=== PATIENT | male | born 1945 | race Caucasian/White ===

== ENCOUNTER 2023-01-13 04:58 | Observation (INO) ==
[2023-01-13] MEDS ORDERED: IOPAMIDOL 100 ML BOTTLE IV ONE (04:59)
[2023-01-13] MEDS ORDERED: 0.9 % SODIUM CHLORIDE 1,000 ML IV ONE (05:15)
[2023-01-13] MEDS ORDERED: fentaNYL 100 MCG/2 ML VIAL IV ONE ×3 (05:15→12:33)
[2023-01-13] MEDS ORDERED: ONDANSETRON 4 MG/2 ML VIAL IV ONE (05:15)
[2023-01-13 05:18] LABS: POC Calcium, Ionized 1.12 (1.16-1.32); POC Creatinine 0.9 (0.6-1.2); POC Potassium 3.7 (3.3-5.1)
[2023-01-13 06:20] LABS: Basophils # (Auto) 0.03 K/mcL (0.00-0.30); Basophils % (Auto) 0.2 % (0.0-2.0); Eosinophils # (Auto) 0.01 K/mcL (0.00-0.70); Eosinophils % (Auto) 0.1 % (0.0-7.0); Hematocrit 49.8 % (40.1-51.0); Hemoglobin 16.3 g/dL (13.7-17.5); Lymphocytes # (Auto) 1.52 K/mcL (1.50-4.80); Lymphocytes % (Auto) 9.6 % (15.5-49.0); Mean Cell Volume 84.8 fL (80.0-100.0); Mean Corpuscular HGB Conc 32.7 g/dL (31.0-36.0); Mean Platelet Volume 11.1 fL (8.8-12.5); Monocytes # (Auto) 2.31 K/mcL (0.10-0.90); Monocytes % (Auto) 14.6 % (1.0-12.0); Neutrophils % (Auto) 75.1 % (38.0-78.0); Platelet Count 313 K/mcL (140-440); RBC 5.87 M/mcL (4.63-6.08); WBC 15.8 K/mcL (4.5-11.0)
[2023-01-13] MEDS ORDERED: PIPERACILLIN SODIUM/TAZOBACTAM 4.5 GM in DEXTROSE 5% IN WATER 50 ML IV ONE (06:25)
[2023-01-13] MEDS ORDERED: LACTATED RINGERS 1,000 ML IV ONE (06:54)
[2023-01-13] MEDS ORDERED: HYDROmorphone 1 MG/ML SYRINGE IV PRN (07:57)
[2023-01-13] MEDS ORDERED: PROMETHAZINE 25 MG/ML VIAL IV PRN ×2 (07:57→13:40)
[2023-01-13 09:31] LABS: Prothrombin Time 13.8 sec (11.9-14.5)
[2023-01-13] MEDS: ACETAMINOPHEN 1,000 MG/100 ML BAG IV SCH ×3 (10:20→19:54)
[2023-01-13] MEDS: 0.9 % SODIUM CHLORIDE 1,000 ML IV SCH ×3 (10:27→19:54)
[2023-01-13] MEDS ORDERED: SCOPOLAMINE 1 PATCH PATCH TOPICAL PRN (12:24)
[2023-01-13] MEDS ORDERED: LIDOCAINE 2% PF 5 ML VIAL ONE (12:33)
[2023-01-13] MEDS ORDERED: DEXAMETHASONE 10 MG/ML VIAL ONE (12:33)
[2023-01-13] MEDS ORDERED: KETAMINE 50 MG/ML Syringe IV ONE (12:33)
[2023-01-13] MEDS ORDERED: MAGNESIUM SULFATE 2 GM/50 ML BAG IV ONE (12:33)
[2023-01-13] MEDS ORDERED: PROPOFOL 200 MG/20 ML VIAL IV ONE (12:33)
[2023-01-13] MEDS ORDERED: SUGAMMADEX SODIUM 200 MG/2 ML VIAL IV ONE (12:33)
[2023-01-13] MEDS ORDERED: ROCURONIUM 10 MG/ML ML IV ONE (12:33)
[2023-01-13] MEDS ORDERED: ONDANSETRON 4 MG/2 ML VIAL ONE (12:33)
[2023-01-13] MEDS: PIPERACILLIN SODIUM/TAZOBACTAM 3.375 GM in DEXTROSE 5% IN WATER 50 ML IV SCH ×2 (13:00→19:57)
[2023-01-13] MEDS ORDERED: PHENYLephrine 1 MG/10 ML SYRINGE (ANEST) ONE (13:10)
[2023-01-13] MEDS ORDERED: ONDANSETRON 4 MG/2 ML VIAL IV PRN (13:40)
[2023-01-13] MEDS ORDERED: IPRATROPIUM/ALBUTEROL 3 ML AMPUL.NEB NEB PRN (13:40)
[2023-01-13] MEDS ORDERED: HYDROmorphone 0.5 MG/0.5 ML SYRINGE IV PRN (13:40)
[2023-01-13] MEDS ORDERED: NALOXONE HCL 0.4 MG/ML VIAL IV PRN (13:40)
[2023-01-13] MEDS ORDERED: fentaNYL 100 MCG/2 ML VIAL IV PRN (13:40)
[2023-01-13] MEDS ORDERED: METHOCARBAMOL 1,000 MG/10 ML VIAL IV PRN (13:40)
[2023-01-13] MEDS ORDERED: LACTATED RINGERS 250 ML IV PRN (13:40)
[2023-01-13] MEDS ORDERED: diphenhydrAMINE 50 MG/ML VIAL IV PRN (13:40)
[2023-01-13] MEDS ORDERED: MEPERIDINE 25 MG/ML VIAL IV PRN (13:40)
[2023-01-13] MEDS ORDERED: LACTATED RINGERS 1,000 ML IV SCH (13:45)
[2023-01-14] MEDS: PIPERACILLIN SODIUM/TAZOBACTAM 3.375 GM in DEXTROSE 5% IN WATER 50 ML IV SCH ×4 (01:12→18:26)
[2023-01-14] MEDS: ACETAMINOPHEN 1,000 MG/100 ML BAG IV SCH ×4 (01:13→20:11)
[2023-01-14] MEDS: 0.9 % SODIUM CHLORIDE 1,000 ML IV SCH ×4 (05:24→17:02)
[2023-01-14 06:11] LABS: Basophils # (Auto) 0.01 K/mcL (0.00-0.30); Basophils % (Auto) 0.1 % (0.0-2.0); Eosinophils # (Auto) 0 K/mcL (0.00-0.70); Eosinophils % (Auto) 0 % (0.0-7.0); Hematocrit 42.4 % (40.1-51.0); Lymphocytes # (Auto) 1.03 K/mcL (1.50-4.80); Lymphocytes % (Auto) 6.2 % (15.5-49.0); Mean Cell Volume 86.2 fL (80.0-100.0); Mean Platelet Volume 10.6 fL (8.8-12.5); Monocytes # (Auto) 1.57 K/mcL (0.10-0.90); Monocytes % (Auto) 9.4 % (1.0-12.0); Neutrophils % (Auto) 83.9 % (38.0-78.0); Platelet Count 220 K/mcL (140-440); RBC 4.92 M/mcL (4.63-6.08); Red Cell Distribution Width 14.3 % (11.5-14.5); WBC 16.7 K/mcL (4.5-11.0)
[2023-01-14 06:29] LABS: ALT/SGPT 57 U/L (<40); AST/SGOT 48 U/L (<40); Albumin 2.7 gm/dL (3.2-5.2); Alkaline Phosphatase 70 U/L (39-117); Bilirubin,Direct 0.4 mg/dL (<0.3); Bilirubin,Total 1.2 mg/dL (0.1-1.0); Blood Urea Nitrogen 15 mg/dL (8-23); Calcium 7.8 mg/dL (8.6-10.4); Carbon Dioxide 25 mmol/L (22-30); Chloride 102 mmol/L (96-108); Globulin 2.6 gm/dL (2.2-3.7); Glomerular Filtration Rate 82; Glucose 120 mg/dL (70-105); Lactate Dehydrogenase 127 U/L (135-225); Phosphorous 2.6 mg/dL (2.5-4.5); Triglycerides 40 mg/dL (<150); Uric Acid 2.8 mg/dL (2.5-8.0)
[2023-01-15] MEDS: PIPERACILLIN SODIUM/TAZOBACTAM 3.375 GM in DEXTROSE 5% IN WATER 50 ML IV SCH ×3 (00:06→12:26)
[2023-01-15] MEDS: 0.9 % SODIUM CHLORIDE 1,000 ML IV SCH (00:10)
[2023-01-15] MEDS: ACETAMINOPHEN 1,000 MG/100 ML BAG IV SCH ×2 (03:02→08:56)
[2023-01-15 07:28] LABS: Basophils # (Auto) 0.03 K/mcL (0.00-0.30); Basophils % (Auto) 0.2 % (0.0-2.0); Eosinophils # (Auto) 0.04 K/mcL (0.00-0.70); Eosinophils % (Auto) 0.3 % (0.0-7.0); Hematocrit 40.5 % (40.1-51.0); Hemoglobin 13.4 g/dL (13.7-17.5); Lymphocytes # (Auto) 1.25 K/mcL (1.50-4.80); Mean Cell Volume 84.6 fL (80.0-100.0); Mean Corpuscular HGB Conc 33.1 g/dL (31.0-36.0); Mean Platelet Volume 11.1 fL (8.8-12.5); Monocytes # (Auto) 1.14 K/mcL (0.10-0.90); Monocytes % (Auto) 9.1 % (1.0-12.0); Platelet Count 237 K/mcL (140-440); RBC 4.79 M/mcL (4.63-6.08); Red Cell Distribution Width 14.2 % (11.5-14.5); WBC 12.5 K/mcL (4.5-11.0)
== END 2023-01-15 13:35 | disposition home or self-care (01) ==
LOC: ED 04:58 → MEDSUR 04:58
PROVIDERS: ADMIT Family Medicine Adult Medicine; ATTEND Family Medicine Adult Medicine

== ENCOUNTER 2024-02-16 18:51 | Observation (INO) ==
[2024-02-16] MEDS ORDERED: IOPAMIDOL 100 ML BOTTLE IV ONE (18:52)
[2024-02-16] MEDS: 0.9 % SODIUM CHLORIDE 1,000 ML IV ONE (19:15)
[2024-02-16 19:30] LABS: Basophils # (Auto) 0.04 K/mcL (0.00-0.30); Basophils % (Auto) 0.5 % (0.0-2.0); Eosinophils # (Auto) 0.11 K/mcL (0.00-0.70); Eosinophils % (Auto) 1.4 % (0.0-7.0); Hematocrit 46.8 % (40.1-51.0); Hemoglobin 15.3 g/dL (13.7-17.5); Lymphocytes # (Auto) 2.04 K/mcL (1.50-4.80); Lymphocytes % (Auto) 26.5 % (15.5-49.0); Mean Corpuscular HGB Conc 32.7 g/dL (31.0-36.0); Mean Platelet Volume 9.5 fL (8.8-12.5); Monocytes # (Auto) 0.89 K/mcL (0.10-0.90); Monocytes % (Auto) 11.6 % (1.0-12.0); Neutrophils % (Auto) 59.7 % (38.0-78.0); Platelet Count 238 K/mcL (140-440); RBC 5.44 M/mcL (4.63-6.08); Red Cell Distribution Width 13.3 % (11.5-14.5); WBC 7.7 K/mcL (4.5-11.0)
[2024-02-16 19:45] LABS: Blood Urea Nitrogen 21 mg/dL (8-23); Calcium 8.6 mg/dL (8.6-10.4); Carbon Dioxide 26 mmol/L (22-30); Chloride 102 mmol/L (96-108); Glomerular Filtration Rate 72; Glucose 89 mg/dL (70-105); Potassium 4.3 mmol/L (3.3-5.1); Sodium 136 mmol/L (133-145)
[2024-02-16 19:46] LABS: Creatine Kinase 95 U/L (24-195)
[2024-02-16] MEDS ORDERED: SENNOSIDES 1 TABLET PO PRN (23:02)
[2024-02-16] MEDS ORDERED: POLYETHYLENE GLYCOL 3350 17 GM PACKET PO PRN (23:02)
[2024-02-16] MEDS ORDERED: ONDANSETRON 4 MG/2 ML VIAL IV PRN (23:02)
[2024-02-17 02:24] LABS: Appearance,Urine CLEAR (Clear); Bilirubin,Urine Negative (Negative); Color,Urine YELLOW; Glucose,Urine (UA) Negative (Negative); Ketones,Urine 5 mg/dL (Negative); Leukocyte Esterase,Urine Negative /uL (Negative); Mucus,Urine FEW /hpf; Nitrate,Urine Negative (Negative); Protein,Urine Negative (Negative); Specific Gravity,Urine 1.036 (1.000-1.035); Urine Blood Negative (Negative); Urine RBC < 1 /hpf (0-3); Urine Squamous Epithelial Cell 0 /hpf (0-4); Urine WBC 0 /hpf (0-4); Urobilinogen,Urine Negative
[2024-02-17 06:49] LABS: Basophils # (Auto) 0.05 K/mcL (0.00-0.30); Basophils % (Auto) 0.8 % (0.0-2.0); Eosinophils # (Auto) 0.13 K/mcL (0.00-0.70); Hematocrit 44.1 % (40.1-51.0); Hemoglobin 14.7 g/dL (13.7-17.5); Lymphocytes # (Auto) 2.05 K/mcL (1.50-4.80); Lymphocytes % (Auto) 32.2 % (15.5-49.0); Mean Cell Volume 85.8 fL (80.0-100.0); Mean Corpuscular HGB Conc 33.3 g/dL (31.0-36.0); Mean Platelet Volume 9.8 fL (8.8-12.5); Monocytes % (Auto) 12.6 % (1.0-12.0); Neutrophils % (Auto) 52.2 % (38.0-78.0); Platelet Count 239 K/mcL (140-440); RBC 5.14 M/mcL (4.63-6.08); Red Cell Distribution Width 13.3 % (11.5-14.5); WBC 6.4 K/mcL (4.5-11.0)
[2024-02-17 06:56] LABS: Thyroid Stimulating Hormone 2.27 uIU/mL (0.27-5.01)
[2024-02-17 07:04] LABS: Blood Urea Nitrogen 18 mg/dL (8-23); Calcium 8.2 mg/dL (8.6-10.4); Carbon Dioxide 26 mmol/L (22-30); Chloride 104 mmol/L (96-108); Glomerular Filtration Rate 72; Glucose 88 mg/dL (70-105); Sodium 138 mmol/L (133-145)
[2024-02-17 09:23] LABS: Free T4 (Free Thyroxine) 1.21 ng/dL (0.93-1.70)
[2024-02-17] MEDS: 0.9 % SODIUM CHLORIDE 10 ML SYRINGE IV SCH (18:09)
[2024-02-17] MEDS: ACETAMINOPHEN 325 MG TABLET PO PRN (21:29)
[2024-02-17] MEDS: MELATONIN 3 MG TABLET PO PRN (21:35)
[2024-02-18 07:02] LABS: Basophils # (Auto) 0.04 K/mcL (0.00-0.30); Basophils % (Auto) 0.6 % (0.0-2.0); Eosinophils % (Auto) 1.6 % (0.0-7.0); Hemoglobin 15.4 g/dL (13.7-17.5); Lymphocytes # (Auto) 1.97 K/mcL (1.50-4.80); Lymphocytes % (Auto) 30.6 % (15.5-49.0); Mean Corpuscular HGB Conc 32.8 g/dL (31.0-36.0); Mean Platelet Volume 9.9 fL (8.8-12.5); Monocytes # (Auto) 0.76 K/mcL (0.10-0.90); Monocytes % (Auto) 11.8 % (1.0-12.0); Neutrophils % (Auto) 55.1 % (38.0-78.0); Platelet Count 253 K/mcL (140-440); RBC 5.53 M/mcL (4.63-6.08); Red Cell Distribution Width 13.3 % (11.5-14.5); WBC 6.4 K/mcL (4.5-11.0)
[2024-02-18 07:19] LABS: Blood Urea Nitrogen 18 mg/dL (8-23); Calcium 8.6 mg/dL (8.6-10.4); Carbon Dioxide 26 mmol/L (22-30); Chloride 104 mmol/L (96-108); Glomerular Filtration Rate 72; Glucose 90 mg/dL (70-105); Potassium 3.8 mmol/L (3.3-5.1); Sodium 139 mmol/L (133-145)
[2024-02-18 07:50] VITALS: TEMP 97.8; O2SAT 98
== END 2024-02-18 11:20 | disposition home or self-care (01) ==
LOC: MEDSUR 18:51 → ED 18:51 → MEDSUR 22:57
PROVIDERS: ADMIT Student in an Organized Health Care Education/Training Program; ATTEND Internal Medicine